=== PATIENT | female | born 1950 | race Asian ===

== ENCOUNTER → 2016-12-09 | Outpatient (CLI) | payer OTHER, MEDICARE ==
[~2016-12-09] VITALS: Ht 152.4 cm; Wt 63.6 kg
[~2016-12-09] MED LIST: ANAPROX DS550 M1 PO; CITRACAL + D C1 EACH PO; ESSENTIAL DAIL1 EACH PO
[2016-12-09 17:15] VITALS: BP 127/69
== END | disposition home or self-care (01) ==
LOC: IVINF 17:00
DX: M81.0 Age-related osteoporosis without current pathological fracture (principal); T50.995A Adverse effect of other drugs, medicaments and biological substances, initial encounter
CPT/HCPCS: 96365; J3489

== ENCOUNTER → 2017-12-15 | Outpatient (CLI) | payer OTHER, MEDICARE ==
[~2017-12-15] VITALS: Ht 152.4 cm; Wt 66.0 kg
[2017-12-15 19:46] VITALS: BP 140/64
== END | disposition home or self-care (01) ==
LOC: IVINF 12-11 08:00
DX: M81.0 Age-related osteoporosis without current pathological fracture (principal); T50.995A Adverse effect of other drugs, medicaments and biological substances, initial encounter
CPT/HCPCS: 96365; J3489